=== PATIENT | male | born 1985 | race Two or more races ===

== ENCOUNTER 2019-04-17 22:11 | Emergency (ER) | payer OTHER ==
[~2019-04-17] VITALS: Ht 175.3 cm; Wt 97.7 kg
[2019-04-17 22:32] VITALS: BP 201/108
== END 2019-04-17 23:02 ==
LOC: ER 22:11
DX: F10.129 Alcohol abuse with intoxication, unspecified (principal); V87.7XXA Person injured in collision between other specified motor vehicles (traffic), initial encounter; Y93.89 Activity, other specified; Y92.488 Other paved roadways as the place of occurrence of the external cause; Y99.8 Other external cause status; Y90.9 Presence of alcohol in blood, level not specified
CPT/HCPCS: 99283

== ENCOUNTER 2024-07-04 16:55 | Emergency (ER) | payer OTHER ==
[~2024-07-04] VITALS: Ht 175.3 cm; Wt 89.5 kg
[2024-07-04 17:16] VITALS: BP 127/84; PULSE 91; RESP 15; TEMP 97.9; O2SAT 98
[2024-07-04] MEDS ORDERED: HYDR-3965 PO (19:10)
[2024-07-06] MEDS ORDERED: HYDR-3965 PO (10:58)
== END 2024-07-04 19:28 | disposition home or self-care (01) ==
LOC: ER 16:56
DX: S82.61XA Displaced fracture of lateral malleolus of right fibula, initial encounter for closed fracture (principal); W01.0XXA Fall on same level from slipping, tripping and stumbling without subsequent striking against object, initial encounter; Y93.89 Activity, other specified; Y92.89 Other specified places as the place of occurrence of the external cause; Y99.8 Other external cause status
CPT/HCPCS: 29405; 73610; 73700; 99284; A6449

== ENCOUNTER 2024-10-20 09:32 | Emergency (ER) | payer MEDICAID, OTHER ==
[~2024-10-20] VITALS: Ht 175.3 cm; Wt 100.0 kg
[2024-10-20] MEDS ORDERED: PRED20TA PO (10:09)
--- NOTE | 2024-10-20 10:12 | Physician Documentation ---
History of Present Illness ~ Chief Complaint: Rash Stated Complaint: POISON OAK Time Seen by MD: 09:58 OK to notify your PCP?: Yes Primary Medical Doctor: NONE Source: patient Mode of Arrival: POV Exam Limitations: no limitations HPI 39-year-old male Medication Reconciliation Allergies: Uncoded Allergies: POISON (Allergy, Intermediate, 10/20/24) Scheduled Prednisone* (Prednisone*), 1 TAB PO DAILY Past Medical History Past Medical History: No Pertinent History Past Surgical History: no surgical history Drug Use: none Lives In: Home Review of Systems All Other Systems at this time: Reviewed and Negative Physical Exam Vital Signs: RN Vital Signs have been reviewed: Yes, Temperature: 98.2, Heart Rate: 92, Respiratory Rate: 18, BP: 155/98, Pulse Oximetry: 97, Weight: 100.000 Pulse Oximetry Reflects: adequate oxygenation Physical Exam General: Alert, no distress. HEENT: No injection, moist mucous membranes. Neck: Full range of motion. Respiratory: No respiratory distress, equal chest rise and fall. Chest: No accessory muscle use. Cardiovascular: Regular rate and rhythm. Gastrointestinal: Nondistended. Extremities: Normal range of motion, no deformity. Neurologic: Oriented x4. Psychiatric: Normal mood and affect. Skin: Erythematous maculopapular rash to bilateral upper eyelids and around ears. Progress Results/Orders Results/Orders Completed Orders - DAYNE MATTHEWS Prednisone Tablet (Prednisone Tablet) (10/20/24 10:10) Vital Signs 10/20/24 10/20/24 09:47 10:34 Temp 98.2 98.2 Pulse 92 64 Resp 18 16 B/P (MAP) 155/98 150/82 Pulse Ox 97 99 Departure Referrals: NO PRIMARY CARE PROVIDER (PCP) Prescriptions Prednisone* (Prednisone*) 20 Mg Tablet 1 TAB PO DAILY for 15 Days, #18 TAB Day 1-5: 2 tablets once daily by mouth for 5 days Day 6-10: 1 tablet once daily by mouth for 5 days Day 11-15: 0.5 tablet once daily by mouth for 5 days Prov: DAYNE MATTHEWS 10/20/24 Additional Comment Medical Screen Exam This patient recieved a medical screening examination. After reviewing the individual's medical complaints with presenting symptoms and performing an appropriate physical examination, it was determined that no immediate life- threatening emergency medical condition is present. This individual is also not a women having contractions. DAYNE MATTHEWS [facility] Oct 20, 2024 10:11
--- NOTE | 2024-10-20 10:13 | Physician Documentation ---
History of Present Illness ~ Chief Complaint: Rash Stated Complaint: POISON OAK Time Seen by MD: 09:58 OK to notify your PCP?: Yes Primary Medical Doctor: NONE Source: patient Mode of Arrival: POV Exam Limitations: no limitations HPI 39-year-old male presents for rash to his bilateral upper eyelids and it goes across his face to his ears which appeared yesterday after being around poison oak. He states that this is happened in the past and this feels exactly like the same rash. He states it is itchy and somewhat painful. There is no blist ering seen. He tried using a [id number] poison oak wash on his face with no relief. Medication Reconciliation Allergies: Uncoded Allergies: POISON (Allergy, Intermediate, 10/20/24) Past Medical History Past Medical History: No Pertinent History Past Surgical History: no surgical history Drug Use: none Lives In: Home Review of Systems All Other Systems at this time: Reviewed and Negative Physical Exam Vital Signs: RN Vital Signs have been reviewed: Yes, Temperature: 98.2, Heart Rate: 92, Respiratory Rate: 18, BP: 155/98, Pulse Oximetry: 97, Weight: 100.000 Pulse Oximetry Reflects: adequate oxygenation Physical Exam General: Alert, no distress. HEENT: No injection, moist mucous membranes. Airway patent. Neck: Full range of motion. Respiratory: No respiratory distress, equal chest rise and fall. Lungs clear bilaterally. Chest: No accessory muscle use. Cardiovascular: Regular rate and rhythm. Gastrointestinal: Nondistended. Extremities: Normal range of motion, no deformity. Neurologic: Oriented x4. Psychiatric: Normal mood and affect. Skin: Normal color, warm and dry. Erythematous maculopapular rash to bilateral upper eyelids which extends across his face and around his earlobes, no blistering noted. Progress Results/Orders Reviewed/noted all lab results: Yes Results/Orders Vital Signs 10/20/24 09:47 Temp 98.2 Pulse 92 Resp 18 B/P (MAP) 155/98 Pulse Ox 97 Medical Decision Making Additional info obtained from: old records Findings 39-year-old male with what appears to be a poison oak rash to his upper eyelids bilaterally and it extends across his face and around his ears. He states that this started yesterday and he is worried that it is going to spread. He is able to open both his eyes well. I started him on a prednisone Dosepak with the 1st dose given here in the department the rest sent to his pharmacy. He is given return instructions and follow up instructions. Differential Dx:Considerations: Include: Candidiasis, Erysipelas, Herpes zost er, Herpes simplex, Impetigo, Molluscum contagiosum, Pityriasis rosea, Psoriaisis, Scabies Departure Disposition: 01 HOME / SELF CARE / HOMELESS Impression: Primary Impression: Allergic contact dermatitis Condition: Stable Discharge Instructions: Contact Dermatitis Additional Instructions: Follow Up With Primary Care Provider in the next week and return here for increasing or worsening symptoms. Please resist the urge to scratch her face as this can cause a secondary infection which would require an antibiotic. Referrals: NO PRIMARY CARE PROVIDER (PCP) Prescriptions Prednisone* (Prednisone*) 20 Mg Tablet 1 TAB PO DAILY for 15 Days, #18 TAB Day 1-5: 2 tablets once daily by mouth for 5 days Day 6-10: 1 tablet once daily by mouth for 5 days Day 11-15: 0.5 tablet once daily by mouth for 5 days Prov: MARY FUENTES 10/20/24 Education Educated: Patient Educated regarding: diagnosis, treatment, prognosis, need for follow up Additional Comment Medical Screen Exam This patient recieved a medical screening examination. After reviewing the individual's medical complaints with presenting symptoms and performing an appropriate physical examination, it was determined that no immediate life- threatening emergency medical condition is present. This individual is also not a women having contractions. Signature Scribe Signature: . Attestation: Scribed for Mary Fuentes by Mary Hook NP . 10/20/24 10:15 Parts of this note were created using [employer] voice recognition software program. While efforts were made to correct any mistakes made by this voice recognition software program, nonsensical phrases may remain in this note. In addition, there may be errors and syntax, grammar, content and spelling. MARY FUENTES Oct 20, 2024 10:13
[2024-10-20 10:34] VITALS: BP 150/82; PULSE 64; RESP 16; TEMP 98.2; O2SAT 99
== END 2024-10-20 10:35 | disposition home or self-care (01) ==
LOC: ER 09:33
DX: L23.7 Allergic contact dermatitis due to plants, except food (principal)
CPT/HCPCS: 99283; J7512

== ENCOUNTER 2025-01-05 11:08 | Emergency (ER) | payer MEDICAID ==
[~2025-01-05] VITALS: Ht 175.3 cm; Wt 107.2 kg
[2025-01-05 11:09] VITALS: TEMP 97.8
[2025-01-05] MEDS ORDERED: TRIA15CR61 TOP (13:43)
[2025-01-05] MEDS ORDERED: PRED20TA PO (13:43)
--- NOTE | 2025-01-05 13:44 | Physician Documentation ---
History of Present Illness ~ Chief Complaint: Rash Stated Complaint: POISON OAK Time Seen by MD: 13:23 OK to notify your PCP?: Yes Primary Medical Doctor: NONE Source: patient Mode of Arrival: POV Exam Limitations: no limitations HPI 39-year-old male with chief complaint itchy rash to his right arm which he states is just like when he has had poison oak in the past. He believes he got it from a dog he recently was pending. No pre arrival treatment. States the rash just started a few days ago. He reports the itching is present all the time that has not particularly worse at night. No fever, chills, sore throat, shortness of breath. Medication Reconciliation Allergies: Coded Allergies: No Known Allergies (Unverified , 01/05/25) Past Medical History Past Medical History: No Pertinent History Past Surgical History: no surgical history Drug Use: none Lives In: Home Review of Systems All Other Systems at this time: Reviewed and Negative Physical Exam Vital Signs: Temperature: 97.8, Source: Oral, Heart Rate: 106, Respiratory Rate: 16, BP: 174/103, Pulse Oximetry: 96, Weight: 107.200 Oxygen Flow Rate: 0 Physical Exam Skin: Maculopapular rash on right forearm and on right ear and just behind his right ear, no pustules. General Appearance: Alert, WD/WN. NAD. HEENT: NCAT, PERRL, EOMI. Neck: Supple, trachea midline. Cardiovascular: RRR. No m/r/g. Lungs: CTAB. Breathing unlabored Extremities: Normal inspection. No edema. Neurological: Alert and oriented x4, normal gait. Psychiatric: Affect congruent with mood. Progress Results/Orders Results/Orders Vital Signs 01/05/25 11:09 Temp 97.8 Pulse 106 Resp 16 B/P (MAP) 174/103 Pulse Ox 96 O2 Flow Rate 0 Medical Decision Making Additional information obtaine: N/A Findings n/a Differential Dx:Considerations: Include: Abscess, AIDS/HIV, Anthrax (cutaneous), Atopic dermatitis, Candidiasis, Contact dermatitis, Drug reaction, Erythema multiforme, Erysipelas, Gangrene, Herpes zoster, Herpes simplex, Hidradenitis suppurativa, Impetigo, Intertrigo, Lymes disease, Molluscum contagiosum, Osteomyelitis, Pediculosis, Pityriasis rosea, Psoriaisis, RMSF, Rosacea, Scabies, Scarlet fever, Tinea, Urticaria, Varicella, Viral exanthema, Other Additional Comment Scabies is also in the but patient has fairly classic findings consistent with contact dermatitis the fact that the itchiness is not particularly worse at night the fact that he had a possible exposure to poison oak Departure Time of Disposition: 13:43 Disposition: 01 HOME / SELF CARE / HOMELESS Impression: Primary Impression: Allergic contact dermatitis Qualified Codes: L23.89 - Allergic contact dermatitis due to other agents Condition: Stable Discharge Instructions: Contact Dermatitis, [id number] Additional Instructions: PREDNISONE RX SENT TO PHARMACY ALONG WITH TOPICAL MEDICATION TO HELP WITH ITCHING YOU CAN ALSO TAKE BENADRYL Referrals: NO PRIMARY CARE PROVIDER (PCP) Prescriptions Triamcinolone Acetonide 0.5% Crm* (Kenalog 0.5% Crm*) 15 Gm Tube 1 APPLIC TOP TID for ITCHING for 7 Days, #30 GM apply to ARM WHERE RASH IS Prov: MIKE AMES 01/05/25 Prednisone* (Prednisone*) 20 Mg Tablet 1 TAB PO DAILY for 5 Days, #5 TAB Prov: MIKE AMES 01/05/25 Education Educated: Patient Educated regarding: diagnosis, treatment, need for follow up Signature Scribe Signature: Zeb Attestation: MIKE CHIN Jan 05, 2025 13:44
[2025-01-05 13:50] VITALS: BP 161/100; PULSE 79; RESP 18; O2SAT 98
== END 2025-01-05 13:51 | disposition home or self-care (01) ==
LOC: ER 11:08
DX: L23.7 Allergic contact dermatitis due to plants, except food (principal)
CPT/HCPCS: 99283